=== PATIENT | male | born 1955 | race Caucasian/White ===

== ENCOUNTER 2016-08-09 17:26 | Emergency (ER) | payer OTHER ==
[2016-08-09 20:03] LABS: HEMOGLOBIN 12.2 gm/dl (14.0-17.5); RED BLOOD COUNT 4.08 M/UL (4.20-5.50); WHITE BLOOD COUNT 5.5 K/UL (4.5-11.0)
[2016-08-09 20:19] LABS: BUN/CREATININE RATIO 9 (0-10)
[2016-08-10 05:35] LABS: HEMOGLOBIN 11.4 gm/dl (14.0-17.5); RED BLOOD COUNT 3.88 M/UL (4.20-5.50); WHITE BLOOD COUNT 4.4 K/UL (4.5-11.0)
[2016-08-10 05:44] LABS: BUN/CREATININE RATIO 6 (0-10)
[2016-08-10] MEDS ORDERED: CRESTOR10 MG PO (08:08)
[2016-08-10] MEDS ORDERED: SYMBICORT 160-1 INHA INH (08:09)
[2016-08-10] MEDS ORDERED: VALPROIC ACID250 MG PO (08:09)
[2016-08-10] MEDS ORDERED: METOPROLOL SUCC25 MG PO (08:10)
[2016-08-10] MEDS ORDERED: NALTREXONE HCL50 MG PO (08:10)
== END 2016-08-10 10:32 | disposition left against medical advice (07) ==
LOC: ER1 17:26 → ZEROF 22:55
PROVIDERS: Internal Medicine; Physician Assistant
DX: I48.91 Unspecified atrial fibrillation (principal); R07.2 Precordial pain; F41.9 Anxiety disorder, unspecified; F10.10 Alcohol abuse, uncomplicated; I10 Essential (primary) hypertension; E78.5 Hyperlipidemia, unspecified; J44.9 Chronic obstructive pulmonary disease, unspecified; F17.210 Nicotine dependence, cigarettes, uncomplicated; Z91.14 Patient's other noncompliance with medication regimen; Z95.0 Presence of cardiac pacemaker; Z88.6 Allergy status to analgesic agent; Z88.8 Allergy status to other drugs, medicaments and biological substances; Z79.899 Other long term (current) drug therapy
CPT/HCPCS: ECHO; 36415; 36600; 71010; 80048; 80053; 80061; 80307; 82550; 82553; 82803; 83735; 83874; 83880; 84439; 84443; 84484; 85025; 85379; 93005; 93306; 94664; 96365; 96366; 96375; 96376; 99285; G0480; J2270; J2405; J7050; Q9963

== ENCOUNTER 2016-10-05 19:06 | Observation (INO) | payer OTHER ==
[~2016-10-05] VITALS: Ht 193 cm; Wt 80.1 kg
[~2016-10-05 19:06] MED LIST: CRESTOR10 MG PO; METOPROLOL SUCC25 MG PO; NALTREXONE HCL50 MG PO; SYMBICORT 160-1 INHA INH; VALPROIC ACID250 MG PO
[2016-10-05 19:43] LABS: HEMOGLOBIN 12.5 gm/dl (14.0-17.5); RED BLOOD COUNT 4.14 M/UL (4.20-5.50); WHITE BLOOD COUNT 5.2 K/UL (4.5-11.0)
[2016-10-05 20:02] LABS: BUN/CREATININE RATIO 8 (0-10)
[2016-10-06] MEDS ORDERED: LIPITOR TAB 1010 MG PO (06:27)
[2016-10-06] MEDS ORDERED: TYLENOL 325MG325 MG PO (06:27)
[2016-10-06] MEDS ORDERED: ROBAXIN500 MG PO (06:28)
[2016-10-06] MEDS ORDERED: HYDROCHLOROTHIA25 MG PO (06:28)
[2016-10-06] MEDS ORDERED: VENTOLIN HFA 66.7 GM INH (06:29)
== END 2016-10-06 18:00 | disposition home or self-care (01) ==
LOC: ER1 19:06 → ZEROF 10-06 03:32 → MED SURG 4 10-06 03:32
PROVIDERS: Family Medicine; ADMIT Hospitalist
DX: R07.89 Other chest pain (principal); F10.129 Alcohol abuse with intoxication, unspecified; I48.2 Chronic atrial fibrillation; I10 Essential (primary) hypertension; E78.5 Hyperlipidemia, unspecified; I25.10 Atherosclerotic heart disease of native coronary artery without angina pectoris; I25.2 Old myocardial infarction; D64.9 Anemia, unspecified; F41.9 Anxiety disorder, unspecified; F17.210 Nicotine dependence, cigarettes, uncomplicated; Z91.14 Patient's other noncompliance with medication regimen; Z79.899 Other long term (current) drug therapy; Z95.0 Presence of cardiac pacemaker; Z90.49 Acquired absence of other specified parts of digestive tract; Z88.8 Allergy status to other drugs, medicaments and biological substances
CPT/HCPCS: 36415; 71010; 80053; 82550; 82553; 83874; 84484; 85025; 85379; 93005; 99285; G0378; G0480; J2270; J7050; Q9963

== ENCOUNTER 2016-10-06 19:18 | Observation (INO) | payer OTHER ==
[~2016-10-06] VITALS: Ht 193 cm; Wt 80.1 kg
[~2016-10-06 19:18] MED LIST changes: +HYDROCHLOROTHIA25 MG PO; +LIPITOR TAB 1010 MG PO; +ROBAXIN500 MG PO; +TYLENOL 325MG325 MG PO; +VENTOLIN HFA 66.7 GM INH
[2016-10-06 22:47] LABS: WHITE BLOOD COUNT 6.3 K/UL (4.5-11.0)
[2016-10-06 22:48] LABS: RED BLOOD COUNT 4.56 M/UL (4.20-5.50)
[2016-10-06 23:21] LABS: BUN/CREATININE RATIO 13 (0-10)
[2016-10-08] MEDS ORDERED: METOPROLOL SUCC50 MG PO (11:34)
== END 2016-10-08 12:55 | disposition home or self-care (01) ==
LOC: ER1 19:18 → MED SURG 4 23:40 → ZEROF 23:40 → MED SURG 4 10-07 00:43
PROVIDERS: Emergency Medicine; ADMIT Hospitalist
DX: R07.89 Other chest pain (principal); I48.1 Persistent atrial fibrillation; I10 Essential (primary) hypertension; D64.9 Anemia, unspecified; E78.5 Hyperlipidemia, unspecified; F17.210 Nicotine dependence, cigarettes, uncomplicated; Z88.8 Allergy status to other drugs, medicaments and biological substances; Z90.49 Acquired absence of other specified parts of digestive tract; Z95.0 Presence of cardiac pacemaker; Z91.19 Patient's noncompliance with other medical treatment and regimen
CPT/HCPCS: 36415; 71010; 78452; 80048; 82550; 82553; 84484; 85025; 93005; 93017; 99285; A9502; G0378; J2270; J2785

== ENCOUNTER 2016-10-08 15:04 | Emergency (ER) | payer OTHER ==
[~2016-10-08 15:04] MED LIST changes: +METOPROLOL SUCC50 MG PO
[2016-10-08 17:26] LABS: RED BLOOD COUNT 4.34 M/UL (4.20-5.50); WHITE BLOOD COUNT 5.4 K/UL (4.5-11.0)
[2016-10-08 17:51] LABS: BUN/CREATININE RATIO 10 (0-10)
== END 2016-10-09 00:59 | disposition home or self-care (01) ==
LOC: ER1 15:04
PROVIDERS: Emergency Medicine
DX: R07.9 Chest pain, unspecified (principal); I10 Essential (primary) hypertension; E78.5 Hyperlipidemia, unspecified; I48.91 Unspecified atrial fibrillation; I25.10 Atherosclerotic heart disease of native coronary artery without angina pectoris; I21.3 ST elevation (STEMI) myocardial infarction of unspecified site; K27.9 Peptic ulcer, site unspecified, unspecified as acute or chronic, without hemorrhage or perforation; Z59.0 Homelessness; Z79.82 Long term (current) use of aspirin; Z79.899 Other long term (current) drug therapy; Z86.73 Personal history of transient ischemic attack (TIA), and cerebral infarction without residual deficits; Z95.0 Presence of cardiac pacemaker
CPT/HCPCS: 36415; 80053; 82550; 82553; 83690; 83874; 84484; 85025; 85379; 85610; 85730; 93005; 96374; 99285; J1885

== ENCOUNTER 2016-10-09 01:45 | Emergency (ER) | payer OTHER ==
[2016-10-09 05:05] LABS: HEMOGLOBIN 14.4 gm/dl (14.0-17.5); RED BLOOD COUNT 4.68 M/UL (4.20-5.50); WHITE BLOOD COUNT 5.6 K/UL (4.5-11.0)
[2016-10-09 05:21] LABS: BUN/CREATININE RATIO 10 (0-10)
== END 2016-10-09 06:15 | disposition home or self-care (01) ==
LOC: ER1 01:45
PROVIDERS: Family Medicine
DX: F10.239 Alcohol dependence with withdrawal, unspecified (principal); F17.210 Nicotine dependence, cigarettes, uncomplicated; J45.909 Unspecified asthma, uncomplicated; I21.3 ST elevation (STEMI) myocardial infarction of unspecified site; Z59.0 Homelessness; Z79.82 Long term (current) use of aspirin; Z95.0 Presence of cardiac pacemaker; Z95.1 Presence of aortocoronary bypass graft
CPT/HCPCS: 36415; 36600; 80053; 82803; 85025; 93005; 99285

== ENCOUNTER 2016-10-12 23:14 | Emergency (ER) | payer OTHER ==
[2016-10-13 08:21] LABS: HEMOGLOBIN 13.3 gm/dl (14.0-17.5); RED BLOOD COUNT 4.42 M/UL (4.20-5.50); WHITE BLOOD COUNT 5.7 K/UL (4.5-11.0)
[2016-10-13 08:32] LABS: BUN/CREATININE RATIO 6 (0-10)
== END 2016-10-13 17:30 | disposition home or self-care (01) ==
LOC: ER1 23:14
PROVIDERS: Emergency Medicine
DX: R07.89 Other chest pain (principal); R06.02 Shortness of breath; I10 Essential (primary) hypertension; F17.200 Nicotine dependence, unspecified, uncomplicated; Z95.0 Presence of cardiac pacemaker; Z86.73 Personal history of transient ischemic attack (TIA), and cerebral infarction without residual deficits; I48.2 Chronic atrial fibrillation; F10.10 Alcohol abuse, uncomplicated; Z88.6 Allergy status to analgesic agent
CPT/HCPCS: 36415; 71010; 78582; 80053; 82550; 82553; 83874; 84484; 85025; 85379; 85610; 85730; 93005; 99285; A9540; A9567

== ENCOUNTER 2016-10-15 15:35 | Emergency (ER) | payer OTHER ==
[2016-10-15 18:16] LABS: HEMOGLOBIN 13.3 gm/dl (14.0-17.5); RED BLOOD COUNT 4.43 M/UL (4.20-5.50); WHITE BLOOD COUNT 6.1 K/UL (4.5-11.0)
[2016-10-15 20:01] LABS: BUN/CREATININE RATIO 9 (0-10)
== END 2016-10-16 02:45 | disposition home or self-care (01) ==
LOC: ER1 15:35
PROVIDERS: Emergency Medicine
DX: R07.89 Other chest pain (principal); F17.200 Nicotine dependence, unspecified, uncomplicated; Z88.6 Allergy status to analgesic agent; Z88.8 Allergy status to other drugs, medicaments and biological substances; Z79.899 Other long term (current) drug therapy; I10 Essential (primary) hypertension; I48.2 Chronic atrial fibrillation
CPT/HCPCS: 36415; 71010; 80053; 81001; 82272; 82550; 82553; 83690; 83874; 84484; 85025; 85610; 85730; 87086; 93005; 99285

== ENCOUNTER 2016-10-16 03:20 | Emergency (ER) | payer OTHER ==
[2016-10-16 08:58] LABS: HEMOGLOBIN 14.6 gm/dl (14.0-17.5); RED BLOOD COUNT 4.84 M/UL (4.20-5.50); WHITE BLOOD COUNT 6.1 K/UL (4.5-11.0)
[2016-10-16 10:48] LABS: BUN/CREATININE RATIO 10 (0-10)
== END 2016-10-16 12:00 | disposition home or self-care (01) ==
LOC: ER1 03:20
PROVIDERS: Emergency Medicine
DX: I48.91 Unspecified atrial fibrillation (principal); I10 Essential (primary) hypertension; E78.5 Hyperlipidemia, unspecified; G40.909 Epilepsy, unspecified, not intractable, without status epilepticus; F17.200 Nicotine dependence, unspecified, uncomplicated; Z95.0 Presence of cardiac pacemaker; Z88.6 Allergy status to analgesic agent; Z88.8 Allergy status to other drugs, medicaments and biological substances; Z79.899 Other long term (current) drug therapy
CPT/HCPCS: 36415; 71010; 80053; 82550; 82553; 83874; 84484; 85025; 93005; 99285